=== PATIENT | male | born 1995 | race Caucasian/White ===

== ENCOUNTER → 2017-10-19 | Outpatient (CLI) | payer OTHER ==
[~2017-10-19] MED LIST: ALBU90OI INH; AZIT250 PO; BENADRYL25 MG PO; BENZ100A PO; Bactrim Ds Tab1 EACH PO; CEPH500 PO; HYDHCL25 PO; MUPI2TC TOP; Pepcid40 MG PO; Prednisone20 MG PO; Zithromax250 MG PO
[2017-10-19 17:45] LABS: BASOPHILS ABSOLUTE AUTO 0.05 K/mm3 (0.00-0.23); BASOPHILS PERCENT AUTO 0 % (0-2); EOSINOPHILS PERCENT AUTO 2 % (0-6); Hematocrit 47.8 % (37.0-53.0); Hemoglobin 15.5 g/dL (13.5-17.5); IMMATURE GRAN ABSOLUTE AUTO 0.02 K/mm3 (0.00-0.10); IMMATURE GRAN PERCENT AUTO 0 % (0-1); LYMPHOCYTES ABSOLUTE AUTO 2.75 K/mm3 (0.84-5.20); LYMPHOCYTES PERCENT AUTO 24 % (21-46); MONOCYTES ABSOLUTE AUTO 0.67 K/mm3 (0.16-1.47); MONOCYTES PERCENT AUTO 6 % (4-13); Mean Corpuscular HGB 27.9 pg (26.0-34.0); Mean Corpuscular HGB Conc 32.4 g/dL (31.5-36.5); Mean Corpuscular Volume 86 fL (80-100); Mean Platelet Volume 10.5 fL (9.1-12.4); NEUTROPHILS PERCENT AUTO 68 % (41-73); Platelet Count 344 K/mm3 (150-400); RDW Coefficient Variation 12.8 % (11.7-14.2); Red Blood Cell Count 5.55 M/mm3 (4.30-5.90); White Blood Cell Count 11.49 K/mm3 (4.00-11.30)
[2017-10-19 19:03] LABS: Alanine Aminotransfer (ALT/SGP 37 U/L (12-78); Alk Phos 108 U/L (50-136); Anion Gap 8 mmol/L (6-16); Aspartate Aminotrans (AST/SGOT 22 U/L (12-37); Bilirubin, Total 0.4 mg/dL (0.1-1.0); Blood Urea Nitrogen 7 mg/dL (8-24); Bun/Creatinine Ratio 8.1 (12.0-20.0); CO2, Blood 25 mmol/L (21-32); Calcium, Blood 9.2 mg/dL (8.5-10.1); Chloride, Blood 105 mmol/L (98-108); Creatinine, Blood 0.86 mg/dL (0.60-1.20); Globulin, Blood 3.9 g/dL (2.2-4.0); Glomerular Filtration Rate >60 (60-); Glucose, Blood 83 mg/dL (70-99); Potassium, Blood 3.8 mmol/L (3.5-5.5); Sodium, Blood 138 mmol/L (136-145); Total Protein, Blood 7.9 g/dL (6.4-8.2)
[2017-10-19 19:11] LABS: Thyroid Stimulating Hormone 0.872 uIU/mL (0.360-4.800)
== END | disposition home or self-care (01) ==
LOC: LAB SHORT 15:14 → LAB 15:14
PROVIDERS: Nurse Practitioner Family
DX: Z00.00 Encounter for general adult medical examination without abnormal findings (principal); Z13.29 Encounter for screening for other suspected endocrine disorder; E55.9 Vitamin D deficiency, unspecified
CPT/HCPCS: 80053; 82306; 84443; 85025

== ENCOUNTER 2018-04-19 20:36 | Emergency (ER) | payer OTHER ==
[~2018-04-19] VITALS: Ht 175.3 cm; Wt 68.0 kg
[2018-04-19] MEDS ORDERED: VENL75ER PO (20:45)
[2018-04-19] MEDS ORDERED: VITAMIN D-32000 UNIT PO (20:45)
[2018-04-19] MEDS ORDERED: MELO7.5 PO (20:45)
[2018-04-19] MEDS ORDERED: Loratadine10 MG PO (20:45)
[2018-04-19] MEDS ORDERED: PRAZ1 PO (20:45)
[2018-04-19] MEDS ORDERED: IBUP600 PO (21:37)
== END 2018-04-19 21:55 | disposition home or self-care (01) ==
LOC: ER 20:36
DX: M25.561 Pain in right knee (principal); Z88.0 Allergy status to penicillin; Z79.899 Other long term (current) drug therapy; F17.210 Nicotine dependence, cigarettes, uncomplicated
CPT/HCPCS: 73562-RT; 99283-25

== ENCOUNTER 2018-04-21 17:50 | Emergency (ER) | payer OTHER ==
[~2018-04-21] VITALS: Ht 175.3 cm; Wt 117.9 kg
[~2018-04-21 17:50] MED LIST changes: +IBUP600 PO; +Loratadine10 MG PO; +MELO7.5 PO; +PRAZ1 PO; +VENL75ER PO; +VITAMIN D-32000 UNIT PO
[2018-04-21 18:40] LABS: BASOPHILS ABSOLUTE AUTO 0.07 K/mm3 (0.00-0.23); BASOPHILS PERCENT AUTO 1 % (0-2); EOSINOPHILS ABSOLUTE AUTO 0.42 K/mm3 (0.00-0.68); EOSINOPHILS PERCENT AUTO 4 % (0-6); Hemoglobin 15.9 g/dL (13.5-17.5); IMMATURE GRAN ABSOLUTE AUTO 0.01 K/mm3 (0.00-0.10); IMMATURE GRAN PERCENT AUTO 0 % (0-1); LYMPHOCYTES PERCENT AUTO 33 % (21-46); MONOCYTES ABSOLUTE AUTO 0.73 K/mm3 (0.16-1.47); MONOCYTES PERCENT AUTO 8 % (4-13); Mean Corpuscular HGB 29.9 pg (26.0-34.0); Mean Corpuscular HGB Conc 33.1 g/dL (31.5-36.5); Mean Corpuscular Volume 90 fL (80-100); NEUTROPHILS ABSOLUTE AUTO 5.15 K/mm3 (1.96-9.15); NEUTROPHILS PERCENT AUTO 54 % (41-73); Platelet Count 264 K/mm3 (150-400); RDW Coefficient Variation 12.5 % (11.7-14.2); RDW Standard Deviation 41.4 fL (35.1-46.3); Red Blood Cell Count 5.31 M/mm3 (4.30-5.90); White Blood Cell Count 9.48 K/mm3 (4.00-11.30)
[2018-04-21 19:13] LABS: Alanine Aminotransfer (ALT/SGP 26 U/L (12-78); Albumin, Blood 3.6 g/dL (3.4-5.0); Albumin/Globulin Ratio 0.9 (0.8-1.8); Alk Phos 146 U/L (50-136); Anion Gap 6 mmol/L (6-16); Aspartate Aminotrans (AST/SGOT 24 U/L (12-37); Bilirubin, Total 0.2 mg/dL (0.1-1.0); Blood Urea Nitrogen 10 mg/dL (8-24); Bun/Creatinine Ratio 12.1 (12.0-20.0); CO2, Blood 27 mmol/L (21-32); Calcium, Blood 8.3 mg/dL (8.5-10.1); Chloride, Blood 108 mmol/L (98-108); Creatinine, Blood 0.82 mg/dL (0.60-1.20); Globulin, Blood 3.8 g/dL (2.2-4.0); Glomerular Filtration Rate >60 (60-); Glucose, Blood 127 mg/dL (70-99); Sodium, Blood 141 mmol/L (136-145); Total Protein, Blood 7.4 g/dL (6.4-8.2)
[2018-04-21 19:51] LABS: Source, Urine Clean Catch
[2018-04-21 19:56] LABS: Bilirubin, Urine Neg (Neg); Blood, Urine Neg (Neg); Glucose Qualitative, Urine Neg (Neg); Ketones, Urine Neg (Neg); Leukocyte Esterase, Urine Neg (Neg); Nitrite, Urine Neg (Neg); Protein, Urine Neg (Neg); Specific Gravity, Urine 1.015 (1.003-1.022); Urobilinogen, Urine 1+ (Normal)
[2018-04-21 20:22] LABS: Appearance, Urine Hazy (Clear); Color, Urine Yellow (P-Yellow)
[2018-04-21 20:28] LABS: Bacteria Not Seen /hpf; Red Blood Cells, Urine Not Seen /hpf (0-2); Squamous Epithelial Cells Not Seen /hpf (Few); White Blood Cells, Urine 0-2 /hpf (0-5)
== END 2018-04-21 21:25 | disposition home or self-care (01) ==
LOC: ER 17:50
PROVIDERS: Emergency Medicine
DX: R11.2 Nausea with vomiting, unspecified (principal); F43.10 Post-traumatic stress disorder, unspecified; F90.9 Attention-deficit hyperactivity disorder, unspecified type; F17.220 Nicotine dependence, chewing tobacco, uncomplicated; Z79.899 Other long term (current) drug therapy
CPT/HCPCS: 36415; 80053; 81001; 83690; 85025; 96361; 96374; 99284-25; J2405; J7030

== ENCOUNTER 2018-07-18 18:44 | Emergency (ER) | payer OTHER ==
[~2018-07-18] VITALS: Ht 175.3 cm; Wt 90.7 kg
[~2018-07-18 18:44] MED LIST changes: +ARIPIPRAZOLE2 MG PO; +SERT25 PO; +Zofran8 MG PO
[2018-07-18] MEDS ORDERED: Cipro500 MG PO (19:46)
== END 2018-07-18 19:57 | disposition home or self-care (01) ==
LOC: ER 18:44
DX: L03.115 Cellulitis of right lower limb (principal); R03.0 Elevated blood-pressure reading, without diagnosis of hypertension; Z59.0 Homelessness; L97.519 Non-pressure chronic ulcer of other part of right foot with unspecified severity; F17.210 Nicotine dependence, cigarettes, uncomplicated; F17.220 Nicotine dependence, chewing tobacco, uncomplicated; F43.10 Post-traumatic stress disorder, unspecified; F90.9 Attention-deficit hyperactivity disorder, unspecified type; Z79.899 Other long term (current) drug therapy
CPT/HCPCS: 99283

== ENCOUNTER 2018-07-22 22:17 | Emergency (ER) | payer OTHER ==
[~2018-07-22] VITALS: Ht 175.3 cm; Wt 83.9 kg
[~2018-07-22 22:17] MED LIST changes: +Cipro500 MG PO
[2018-07-23] MEDS ORDERED: Cipro500 MG PO (00:28)
== END 2018-07-23 00:57 | disposition home or self-care (01) ==
LOC: ER 22:17
DX: L03.031 Cellulitis of right toe (principal); Z59.0 Homelessness; Z88.0 Allergy status to penicillin; Z79.899 Other long term (current) drug therapy; F43.10 Post-traumatic stress disorder, unspecified; F32.9 Major depressive disorder, single episode, unspecified; F17.210 Nicotine dependence, cigarettes, uncomplicated
CPT/HCPCS: 99283

== ENCOUNTER 2018-08-12 06:45 | Emergency (ER) | payer OTHER ==
[~2018-08-12] VITALS: Ht 175.3 cm; Wt 79.4 kg
[2018-08-12] MEDS ORDERED: TRIA15CR3 TOP (08:12)
== END 2018-08-12 08:15 | disposition home or self-care (01) ==
LOC: ER 06:45
DX: R21 Rash and other nonspecific skin eruption (principal); Z88.0 Allergy status to penicillin; F17.200 Nicotine dependence, unspecified, uncomplicated
CPT/HCPCS: 99282

== ENCOUNTER 2018-09-04 12:46 | Emergency (ER) | payer OTHER ==
[~2018-09-04] VITALS: Ht 175.3 cm; Wt 81.7 kg
[~2018-09-04 12:46] MED LIST changes: +TRIA15CR3 TOP
[2018-09-04] MEDS ORDERED: METPRE4DP PO (15:05)
== END 2018-09-04 15:11 | disposition home or self-care (01) ==
LOC: ER 12:46
DX: L30.9 Dermatitis, unspecified (principal); Z88.0 Allergy status to penicillin; Z79.899 Other long term (current) drug therapy; F43.10 Post-traumatic stress disorder, unspecified; F32.9 Major depressive disorder, single episode, unspecified; F41.9 Anxiety disorder, unspecified; F17.200 Nicotine dependence, unspecified, uncomplicated
CPT/HCPCS: 99282

== ENCOUNTER 2018-09-06 20:54 | Emergency (ER) | payer OTHER ==
[~2018-09-06] VITALS: Ht 175.3 cm; Wt 81.7 kg
[~2018-09-06 20:54] MED LIST changes: +METPRE4DP PO
== END 2018-09-06 23:03 | disposition left against medical advice (07) ==
LOC: ER 20:54
DX: R11.10 Vomiting, unspecified (principal); R51 Headache; Z53.20 Procedure and treatment not carried out because of patient's decision for unspecified reasons
CPT/HCPCS: 99283

== ENCOUNTER → 2018-10-13 | Outpatient (CLI) | payer OTHER ==
[~2018-10-13] MED LIST changes: +Abilify2 MG PO; +Zoloft50 MG PO
== END | disposition home or self-care (01) ==
LOC: LAB SHORT 09:15 → LAB 09:15
DX: L25.5 Unspecified contact dermatitis due to plants, except food (principal)
CPT/HCPCS: 87070; 87077; 87186; 87205

== ENCOUNTER 2018-11-14 18:51 | Emergency (ER) | payer OTHER ==
[~2018-11-14] VITALS: Ht 175.3 cm; Wt 72.6 kg
[~2018-11-14 18:51] MED LIST changes: -Abilify2 MG PO; -Zoloft50 MG PO
[2018-11-14 19:50] LABS: BASOPHILS ABSOLUTE AUTO 0.06 K/mm3 (0.00-0.23); BASOPHILS PERCENT AUTO 0 % (0-2); EOSINOPHILS ABSOLUTE AUTO 0.42 K/mm3 (0.00-0.68); EOSINOPHILS PERCENT AUTO 2 % (0-6); Hematocrit 44.6 % (37.0-53.0); Hemoglobin 14.9 g/dL (13.5-17.5); IMMATURE GRAN ABSOLUTE AUTO 0.19 K/mm3 (0.00-0.10); IMMATURE GRAN PERCENT AUTO 1 % (0-1); LYMPHOCYTES ABSOLUTE AUTO 2.81 K/mm3 (0.84-5.20); LYMPHOCYTES PERCENT AUTO 13 % (21-46); MONOCYTES ABSOLUTE AUTO 1.46 K/mm3 (0.16-1.47); MONOCYTES PERCENT AUTO 7 % (4-13); Mean Corpuscular HGB 29.1 pg (26.0-34.0); Mean Corpuscular HGB Conc 33.4 g/dL (31.5-36.5); Mean Corpuscular Volume 87 fL (80-100); Mean Platelet Volume 9.5 fL (9.1-12.4); NEUTROPHILS ABSOLUTE AUTO 16.33 K/mm3 (1.96-9.15); NEUTROPHILS PERCENT AUTO 77 % (41-73); Platelet Count 366 K/mm3 (150-400); RDW Coefficient Variation 12.5 % (11.7-14.2); Red Blood Cell Count 5.12 M/mm3 (4.30-5.90); White Blood Cell Count 21.27 K/mm3 (4.00-11.30)
[2018-11-14] MEDS ORDERED: Zoloft50 MG PO (19:54)
[2018-11-14] MEDS ORDERED: Abilify2 MG PO (19:55)
[2018-11-14 20:06] LABS: Alanine Aminotransfer (ALT/SGP 18 U/L (12-78); Albumin, Blood 3.3 g/dL (3.4-5.0); Albumin/Globulin Ratio 0.7 (0.8-1.8); Alk Phos 100 U/L (50-136); Anion Gap 5 mmol/L (6-16); Aspartate Aminotrans (AST/SGOT 8 U/L (12-37); Bilirubin, Total 0.3 mg/dL (0.1-1.0); Blood Urea Nitrogen 14 mg/dL (8-24); CO2, Blood 29 mmol/L (21-32); Calcium, Blood 8.9 mg/dL (8.5-10.1); Chloride, Blood 106 mmol/L (98-108); Globulin, Blood 4.5 g/dL (2.2-4.0); Glomerular Filtration Rate >60 (60-); Glucose, Blood 94 mg/dL (70-99); Sodium, Blood 140 mmol/L (136-145); Total Protein, Blood 7.8 g/dL (6.4-8.2)
[2018-11-14] MEDS ORDERED: CEPH500 PO (20:28)
== END 2018-11-14 20:42 | disposition home or self-care (01) ==
LOC: ER 18:51
PROVIDERS: Physician Assistant
DX: L03.114 Cellulitis of left upper limb (principal); L03.113 Cellulitis of right upper limb; L03.312 Cellulitis of back [any part except buttock and flank]; Z88.0 Allergy status to penicillin; Z79.899 Other long term (current) drug therapy; F17.210 Nicotine dependence, cigarettes, uncomplicated
CPT/HCPCS: 36415; 76882; 80053; 83605; 85025; 87040; 99282

== ENCOUNTER 2019-08-07 11:11 | Emergency (ER) | payer OTHER ==
[~2019-08-07] VITALS: Ht 175.3 cm; Wt 63.5 kg
[~2019-08-07 11:11] MED LIST changes: +Abilify2 MG PO; +Zoloft50 MG PO
== END 2019-08-07 12:24 | disposition home or self-care (01) ==
LOC: ER 11:11
DX: M25.531 Pain in right wrist (principal); F43.10 Post-traumatic stress disorder, unspecified; F32.9 Major depressive disorder, single episode, unspecified; F41.9 Anxiety disorder, unspecified; F17.200 Nicotine dependence, unspecified, uncomplicated; Z88.0 Allergy status to penicillin; Z79.899 Other long term (current) drug therapy
CPT/HCPCS: 29125; 73110; 99283-25

== ENCOUNTER 2019-10-17 10:09 | Emergency (ER) | payer OTHER ==
[~2019-10-17] VITALS: Ht 175.3 cm; Wt 90.7 kg
== END 2019-10-17 11:55 | disposition home or self-care (01) ==
LOC: ER 10:09
DX: S63.602A Unspecified sprain of left thumb, initial encounter (principal); Z88.0 Allergy status to penicillin; F17.210 Nicotine dependence, cigarettes, uncomplicated; X58.XXXA Exposure to other specified factors, initial encounter
CPT/HCPCS: 73130; 99283-25

== ENCOUNTER 2020-01-20 22:15 | Emergency (ER) | payer OTHER ==
[~2020-01-20] VITALS: Ht 175.3 cm; Wt 74.8 kg
== END 2020-01-21 03:52 | disposition home or self-care (01) ==
LOC: ER 22:15
DX: K02.9 Dental caries, unspecified (principal); F17.210 Nicotine dependence, cigarettes, uncomplicated; Z88.0 Allergy status to penicillin
CPT/HCPCS: 64400; 99282-25

== ENCOUNTER 2020-06-16 17:14 | Emergency (ER) | payer OTHER ==
[~2020-06-16] VITALS: Ht 172.7 cm; Wt 81.7 kg
[2020-06-16] MEDS ORDERED: CYMBALTA30 M2 PO (21:11)
[2020-06-16] MEDS ORDERED: IBUP100S (21:12)
[2020-06-16] MEDS ORDERED: CLINGEL TOP (21:12)
[2020-06-16] MEDS ORDERED: MAXALT MLT10 MG PO (21:12)
[2020-06-16] MEDS ORDERED: SULTRIDS PO (21:47)
[2020-06-16] MEDS ORDERED: CEPH500 PO (21:47)
== END 2020-06-16 21:57 | disposition home or self-care (01) ==
LOC: ER 17:14
DX: L03.113 Cellulitis of right upper limb (principal); L03.116 Cellulitis of left lower limb; L03.115 Cellulitis of right lower limb; F17.210 Nicotine dependence, cigarettes, uncomplicated; Z88.0 Allergy status to penicillin; Z59.0 Homelessness
CPT/HCPCS: 99283; A9270

== ENCOUNTER 2021-05-11 20:21 | Emergency (ER) | payer OTHER ==
[~2021-05-11] VITALS: Ht 175.3 cm; Wt 68.0 kg
[~2021-05-11 20:21] MED LIST changes: +ACET500 PO; +CLINGEL TOP; +CYMBALTA30 M2 PO; +Deltasone 10 mg10 MG PO; +IBUP100S; +MAXALT MLT10 MG PO; +PRED20 PO; +SULTRIDS PO
== END 2021-05-11 23:50 | disposition home or self-care (01) ==
LOC: ER 20:21
DX: L24.5 Irritant contact dermatitis due to other chemical products (principal); F17.210 Nicotine dependence, cigarettes, uncomplicated; F43.9 Reaction to severe stress, unspecified; Z79.899 Other long term (current) drug therapy; Z79.52 Long term (current) use of systemic steroids; Z88.0 Allergy status to penicillin

== ENCOUNTER 2022-06-30 10:30 | Emergency (ER) | payer OTHER ==
[~2022-06-30] VITALS: Ht 175.3 cm; Wt 90.7 kg
[2022-06-30] MEDS ORDERED: QUETIAPINE FUM10011 PO (11:16)
[2022-06-30] MEDS ORDERED: CORTISONE60 GM EXT (11:47)
== END 2022-06-30 12:24 | disposition home or self-care (01) ==
LOC: ER 10:30
DX: L98.9 Disorder of the skin and subcutaneous tissue, unspecified (principal); F17.210 Nicotine dependence, cigarettes, uncomplicated
CPT/HCPCS: 99283

== ENCOUNTER 2022-10-05 13:46 | Emergency (ER) | payer OTHER ==
[~2022-10-05] VITALS: Ht 175.3 cm; Wt 99.8 kg
[~2022-10-05 13:46] MED LIST changes: +CORTISONE60 GM EXT; +QUETIAPINE FUM10011 PO
[2022-10-05 13:52] VITALS: BP 138/74
== END 2022-10-05 14:37 | disposition home or self-care (01) ==
LOC: ER 13:46
DX: L25.9 Unspecified contact dermatitis, unspecified cause (principal); F32.A Depression, unspecified; F17.210 Nicotine dependence, cigarettes, uncomplicated; Z88.0 Allergy status to penicillin; Z79.899 Other long term (current) drug therapy
CPT/HCPCS: 96372; 99282-25; J3301

== ENCOUNTER 2023-01-07 18:50 | Emergency (ER) | payer OTHER ==
[~2023-01-07] VITALS: Ht 175.3 cm; Wt 63.5 kg
[2023-01-07 18:58] VITALS: BP 132/84
[2023-01-07] MEDS ORDERED: Bactrim Ds Tab1 EACH PO (19:01)
== END 2023-01-07 19:10 | disposition home or self-care (01) ==
LOC: ER 18:50
DX: L08.89 Other specified local infections of the skin and subcutaneous tissue (principal); Z88.0 Allergy status to penicillin; Z79.2 Long term (current) use of antibiotics; Z79.899 Other long term (current) drug therapy; F17.210 Nicotine dependence, cigarettes, uncomplicated
CPT/HCPCS: 99283; A9270

== ENCOUNTER 2023-08-07 13:02 | Emergency (ER) | payer OTHER ==
[~2023-08-07] VITALS: Ht 175.3 cm; Wt 72.6 kg
[2023-08-07] MEDS ORDERED: Diphth,Pertuss(Acell),Tet Vac 0.5 ML VIAL IM ONE (13:10)
[2023-08-07] MEDS ORDERED: Cephalexin Monohydrate 500 MG Cap PO ONE (16:10)
[2023-08-07] MEDS ORDERED: IBUP400 PO (16:15)
[2023-08-07] MEDS ORDERED: HYDR1TAB94 PO (16:15)
[2023-08-07] MEDS ORDERED: CEPH500 PO (16:15)
[2023-08-07 16:30] VITALS: BP 125/80
== END 2023-08-07 16:50 | disposition home or self-care (01) ==
LOC: ER 13:02
DX: S68.625A Partial traumatic transphalangeal amputation of left ring finger, initial encounter (principal); W22.8XXA Striking against or struck by other objects, initial encounter; Z88.0 Allergy status to penicillin; Z79.899 Other long term (current) drug therapy; F17.210 Nicotine dependence, cigarettes, uncomplicated
CPT/HCPCS: 12001; 73140; 90471; 90715; 99283-25; A9270